=== PATIENT | male | born 1975 | race Caucasian/White ===

== ENCOUNTER → 2020-03-27 | Outpatient (CLI) | payer OTHER ==
[2020-03-27 12:50] LABS: RED BLOOD COUNT 5.82 M/UL (4.20-5.50); WHITE BLOOD COUNT 8.6 K/UL (4.5-11.0)
[2020-03-27 13:05] LABS: BUN/CREATININE RATIO 14 (0-10)
[2020-03-28 09:14] LABS: TESTOSTERONE, SERUM 546 ng/dL (264-916)
== END ==
LOC: LAB 12:16
PROVIDERS: Family Medicine
DX: Z13.220 Encounter for screening for lipoid disorders (principal); Z13.29 Encounter for screening for other suspected endocrine disorder; F32.89 Other specified depressive episodes; E29.1 Testicular hypofunction
CPT/HCPCS: 36415; 80053; 80061; 84403; 84439; 84443; 85027

== ENCOUNTER → 2020-05-23 | Outpatient (CLI) | payer OTHER ==
[2020-05-25 14:09] LABS: CHOLESTEROL, TOTAL 222 mg/dL (100-199); HDL SIZE 8.7 nm (>=9.2); HDL-C 45 mg/dL (>39); HDL-P (TOTAL) 29.5 umol/L (>=30.5); LARGE HDL-P 3.1 umol/L (>=4.8); LARGE VLDL-P 1.2 nmol/L (<=2.7); LDL SIZE 21.3 nm (>20.5); LDL SIZE 21.3 nm (>=20.8); LDL-C 162 mg/dL (0-99); LDL-P 1865 nmol/L (<1000); LP-IR SCORE 37 (<=45); SMALL LDL-P 768 nmol/L (<=527); TRIGLYCERIDES 84 mg/dL (0-149); VLDL SIZE 40.1 nm (<=46.6)
== END ==
LOC: LAB 11:00
PROVIDERS: Family Medicine
DX: E78.49 Other hyperlipidemia (principal)
CPT/HCPCS: 36415

== ENCOUNTER → 2020-07-29 | Outpatient (CLI) | payer OTHER ==
[2020-07-29 11:03] LABS: HEMOGLOBIN 16.4 gm/dl (14.0-17.5); RED BLOOD COUNT 5.52 M/UL (4.20-5.50); WHITE BLOOD COUNT 7.3 K/UL (4.5-11.0)
[2020-07-30 10:15] LABS: TESTOSTERONE, SERUM 218 ng/dL (264-916)
== END ==
LOC: LAB 10:36
PROVIDERS: Family Medicine
DX: F41.1 Generalized anxiety disorder (principal); R53.83 Other fatigue; R53.81 Other malaise; E29.1 Testicular hypofunction; E78.2 Mixed hyperlipidemia
CPT/HCPCS: 36415; 80053; 80061; 84403; 85027

== ENCOUNTER → 2020-11-25 | Outpatient (CLI) | payer OTHER ==
[2020-11-25 11:02] LABS: HEMOGLOBIN 15.3 gm/dl (14.0-17.5); RED BLOOD COUNT 5.4 M/UL (4.20-5.50); WHITE BLOOD COUNT 9.7 K/UL (4.5-11.0)
[2020-11-26 08:14] LABS: TESTOSTERONE, SERUM 698 ng/dL (264-916)
== END ==
LOC: LAB 10:25
PROVIDERS: Family Medicine
DX: F41.1 Generalized anxiety disorder (principal); R53.83 Other fatigue; R53.81 Other malaise; E78.2 Mixed hyperlipidemia
CPT/HCPCS: 36415; 80053; 80061; 84403; 85027

== ENCOUNTER → 2021-03-02 | Outpatient (CLI) | payer OTHER ==
[2021-03-02 11:44] LABS: RED BLOOD COUNT 5.48 M/UL (4.20-5.50); WHITE BLOOD COUNT 9.4 K/UL (4.5-11.0)
[2021-03-02 12:08] LABS: BUN/CREATININE RATIO 19 (0-10)
[2021-03-03 09:14] LABS: TESTOSTERONE, SERUM 73 ng/dL (264-916)
== END ==
LOC: LAB 10:48
PROVIDERS: Family Medicine
DX: E78.2 Mixed hyperlipidemia (principal); F41.1 Generalized anxiety disorder; R53.83 Other fatigue; R53.81 Other malaise
CPT/HCPCS: 36415; 80053; 80061; 84403; 85027

== ENCOUNTER → 2021-03-05 | Outpatient (CLI) | payer OTHER | LOC: RAD 12:50 | DX: M25.511 Pain in right shoulder (principal); M54.2 Cervicalgia; M47.812 Spondylosis without myelopathy or radiculopathy, cervical region | CPT/HCPCS: 72050; 73030 ==

== ENCOUNTER → 2021-09-08 | Outpatient (CLI) | payer OTHER ==
[2021-09-08 12:33] LABS: HEMOGLOBIN 13.8 gm/dl (14.0-17.5); RED BLOOD COUNT 4.83 M/UL (4.20-5.50); WHITE BLOOD COUNT 5.9 K/UL (4.5-11.0)
[2021-09-08 12:48] LABS: BUN/CREATININE RATIO 11 (0-10)
[2021-09-09 08:15] LABS: TESTOSTERONE, SERUM 427 ng/dL (264-916)
== END ==
LOC: LAB 11:25
PROVIDERS: Family Medicine
DX: E29.9 Testicular dysfunction, unspecified (principal); I10 Essential (primary) hypertension
CPT/HCPCS: 36415; 80053; 84403; 85027